=== PATIENT | male | born 1975 | race African-American/Black ===

== ENCOUNTER 2025-05-16 19:15 | Observation (INO) | payer SELFPAY ==
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
--- NOTE | 2025-05-16 19:25 | ECG_ITS ---
Test Date: 2025-05-16 19:30:56 Measurements Intervals [place] Rate: 79 P: 64 NC: 168 QRS: 7 QRSD: 87 T: 34 QT: 345 QTc: 397 Interpretive Statements SINUS RHYTHM WITH SINUS ARRHYTHMIA POSSIBLE ANTERIOR MYOCARDIAL INFARCTION , OF INDETERMINATE AGE Electronically Signed On 05-17-2025 17:16:06 CDT by Mayo Birmingham D.O
[2025-05-16 19:28] VITALS: BP 166/104; PULSE 83; RESP 17; TEMP 36.8; O2SAT 97
[2025-05-16 19:53] LABS: Hematocrit 41.2 % (42.0-52.0); Hemoglobin 13.7 g/dL (14.0-18.0); Immature Granulocyte Percent A 0.0 % (0-0.5); Lymphocytes Absolute Auto 1.84 K/mm3 (0.9-3.2); Mean Corpuscular HGB Conc 33.3 g/dl (32-36); Mean Corpuscular Hemoglobin 31.1 pg (26-34); Mean Corpuscular Volume 93.4 fl (80-100); Nucleated Red Blood Cells Absolute Auto 0.000 K/mm3 (0.0-0.012); Nucleated Red Blood Cells Perc 0.0 % (0.0-0.2); Platelet Count Result 149 k/mm3 (150-375); Red Blood Count 4.41 M/mm3 (4.6-6.20); White Blood Count 4.3 K/mm3 (4.5-10.0)
[2025-05-16 20:03] LABS: INR 0.9; Prothrombin Time 12.5 Seconds (11.1-14.7)
[2025-05-16 20:04] LABS: Partial Thromboplastin Time 26.8 Seconds (22.3-36.8)
[2025-05-16 20:05] LABS: Alanine Aminotransferase 72 U/L (6-50); Albumin Level 4.7 g/dL (3.5-5.1); Alkaline Phosphatase 52 U/L (38-126); Anion Gap 10 mmol/L (4-12); Aspartate Amino Transferase 161 U/L (17-59); Bilirubin,Total 0.6 mg/dL (0.2-1.3); Blood Urea Nitrogen 12 mg/dL (9-20); Calcium 9.1 mg/dL (8.4-10.2); Carbon Dioxide 25 mmol/L (22-30); Chloride 101 mmol/L (98-107); Estimated CRCL calculation 97 ml/min; Estimated Glomerular Filt Rate > 60; Glucose 112 mg/dL (65-110); Lipase 81 U/L (23-300); Potassium 4.0 mmol/L (3.4-5.0); Sodium 136 mmol/L (137-145); Total Protein 8.0 g/dL (6.3-8.2)
[2025-05-16 20:17] LABS: Troponin I < 0.012 ng/mL (0.000-0.034)
--- NOTE | 2025-05-16 22:23 | ECG_ITS ---
Test Date: 2025-05-16 22:31:26 Measurements Intervals [place] Rate: 69 P: 42 NV: 170 QRS: 42 QRSD: 90 T: 36 QT: 378 QTc: 407 Interpretive Statements SINUS RHYTHM VOLTAGE CRITERIA FOR LVH, CONSIDER NORMAL VARIANT Electronically Signed On 05-17-2025 17:18:19 CDT by Mayo Birmingham D.O
[2025-05-16 22:24] VITALS: BP 140/93; PULSE 76; PULSE 82; RESP 12; O2SAT 97
[2025-05-16 22:34] VITALS: O2SAT 97
[2025-05-16] MEDS: ASPIRIN 81 MG CHEWABLE TABLET 324 MG PO (22:44)
[2025-05-16 23:07] LABS: Troponin I 0.035 ng/mL (0.000-0.034)
--- NOTE | 2025-05-16 23:18 | ED.CHESTPAIN ---
HPI - Chest Pain General Chief Complaint: Chest Pain Stated Complaint: cp Time Seen by Provider: 05/16/25 22:26 History of Present Illness HPI narrative: Patient with h/o hypertension, admits that he does drink too much alcohol, presents here with midsternal chest pain on and off for last 2 days, has never had symptoms like this before, he has been trying to cut down on his alcohol use. The pain is nonradiating, no shortness of breath or nausea vomiting or diaphoresis Related Data Allergies Allergy/AdvReac Type Severity Reaction Status Date / Time lisinopril Allergy Intermediate Swelling Verified 05/16/25 19:16 of Lip/Tongue/Throat Review of Systems Review of Systems: All systems reviewed & are unremarkable except as noted in HPI and below Exam Narrative: EXAMINATION OF ORGAN SYSTEMS/BODY AREAS: Constitutional: Vital signs per nursing GENERAL:[No acute distress, non-toxic appearing.] HEAD: Normal with no signs of head trauma. EYES: EOMI, conjunctiva normal ENT: Hearing grossly intact LUNGS: Nonlabored breathing. HEART: [Regular rate and rhythm], normal DP and radial pulses bilaterally ABD: [Soft], [nontender to palpation] EXT: Normal range of motion SKIN: [No rashes or lesions.] NEURO: [Alert and oriented x 3. No gross focal sensory or strength deficits.] PSYCH: Normal affect Course Vital Signs Vital signs: Vital Signs Temperature 98.3 F 05/16/25 19:28 Pulse Rate 83 05/16/25 19:28 Respiratory Rate 17 05/16/25 19:28 Blood Pressure 166/104 H 05/16/25 19:28 Pulse Oximetry 97 05/16/25 19:28 Oxygen Delivery Room Air 05/16/25 19:28 Temperature 98.3 F 05/16/25 19:28 Pulse Rate 76 05/16/25 22:24 Respiratory Rate 12 05/16/25 22:24 Blood Pressure 140/93 H 05/16/25 22:24 Pulse Oximetry 97 05/16/25 22:34 Oxygen Delivery Room Air 05/16/25 22:34 MDM - Chest Pain MDM Narrative Medical decision making narrative: ED COURSE AND MEDICAL DECISION MAKINM presenting with chest pain. EKG done in triage negative for acute ischemic changes. Cardiac workup is initiated. EKG: Performed in triage and interpreted by me. Normal sinus rhythm. Rate 79. Normal axis. AZ normal. QRS duration normal. QTc normal. No pathologic Q waves. No ST segment elevation or depression to suggest acute ischemia. No RV strain pattern. Possible hyperacute T-waves V2 to V4 but no prior EKG for comparison Labs obtained initial troponin normal, LFTs are quite elevated consistent with alcoholic disease. Repeat EKG at 3 hours shows sinus rhythm rate 69, AZ 170, QRS 90, QTC 407, normal axis, the same possible hyperacute T waves visualized without any changes Unfortunately his 2nd troponin came back very minimally elevated at 0.035; at this time given his risk factors I did feel it would be beneficial for him to be admitted for further workup. Patient is agreeable to this plan. He is not having any chest pain so I did not feel heparin drip indicated at this time. He is resting very comfortably without any distress. He has no neurovascular deficits and chest x-ray without widened mediastinum so overall I have low concern for dissection. Discussed with hospitalist for admission. Lab Data 05/16/25 19:47 05/16/25 19:47 Labs: Lab Results 05/16/25 05/16/25 Range/Units 19:47 22:30 WBC 4.3 L (4.5-10.0) K/mm3 RBC 4.41 L (4.6-6.20) M/mm3 Hgb 13.7 L (14.0-18.0) g/dL Hct 41.2 L (42.0-52.0) % MCV 93.4 (80-100) fl MCH 31.1 (26-34) pg MCHC 33.3 (32-36) g/dl RDW 13.4 (11.5-14.5) % Plt Count 149 L (150-375) k/mm3 MPV 10.8 H (7.4-10.4) fl Immature Gran % (Auto) 0.0 (0-0.5) % Neut % (Auto) 42.6 L (45.5-73.1) % Lymph % (Auto) 42.4 (18.3-44.2) % [place] % (Auto) 14.3 H (2.6-8.5) % Eos % (Auto) 0.0 (0-4.4) % Baso % (Auto) 0.7 (0.2-1.2) % Lymph # (Auto) 1.84 (0.9-3.2) K/mm3 [place] # (Auto) 0.6 (0.1-0.6) K/mm3 Eos # (Auto) 0.0 (0-0.3) K/mm3 Baso # (Auto) 0.0 (0.0-0.1) K/mm3 Abs Immat Gran (auto) 0.00 (0.00-0.031) K/mm3 Absolute Neuts (auto) 1.9 (1.3-6.7) K/mm3 Absolute Nucleated RBC 0.000 (0.0-0.012) K/mm3 Nucleated RBC % 0.0 (0.0-0.2) % PT 12.5 (11.1-14.7) Seconds INR 0.9 APTT 26.8 (22.3-36.8) Seconds Sodium 136 L (137-145) mmol/L Potassium 4.0 (3.4-5.0) mmol/L Chloride 101 (98-107) mmol/L Carbon Dioxide 25 (22-30) mmol/L Anion Gap 10 (4-12) mmol/L BUN 12 (9-20) mg/dL Creatinine 0.93 (0.7-1.3) mg/dL Estim Creat Clear Calc 97 ml/min Estimated GFR > 60 (59 - ) Glucose 112 H (65-110) mg/dL Calcium 9.1 (8.4-10.2) mg/dL Total Bilirubin 0.6 (0.2-1.3) mg/dL AST 161 H (17-59) U/L ALT 72 H (6-50) U/L Alkaline Phosphatase 52 (38-126) U/L Troponin I < 0.012 0.035 H* D (0.000-0.034) ng/mL Total Protein 8.0 (6.3-8.2) g/dL Albumin 4.7 (3.5-5.1) g/dL Lipase 81 (23-300) U/L Discharge Plan Discharge Clinical Impression: Atypical chest pain, Elevated LFTs, Elevated troponin Patient Disposition: Still a Patient Condition: Stable
[2025-05-16 23:20] VITALS: BP 145/109; PULSE 81; RESP 18; O2SAT 97
--- OUTSIDE RECORDS SUMMARY | 2025-05-16 23:35 | XMS_ITS | Clinical Summary ---
Author Organization [facility] Address [address] [place] [address] Care Team Providers Care Client Service Administrator Name Role Phone Mike Bernard Primary Care Provider [phone] Allergies Active Allergy Reactions Criticality Noted Date Comments Lisinopril Angioedema High 06/03/2023 Medications amLODIPine (Norvasc) 5 MG tablet Take 5 mg by mouth 1 (one) time each day. 02/23/2025 Active Active Problems No known active problems Encounters Date Type Department Care Team Description 03/08/2025 11:00 AM CDT Office Visit [facility] [place] [address] [place] [address] Francisco Keith MD Chondral defect of left patella (Primary Dx) 03/08/2025 Travel from Last 3 Months Social History Tobacco Use Types Packs/Day Years Used Date Smoking Tobacco: Never Smokeless Tobacco: Never Tobacco Cessation:Counseling Given: Not Answered Alcohol Use Standard Drinks/Week Comments Yes 2 (1 standard drink = 0.6 oz pur e alcohol) Sex and Gender Information Value Date Recorded Sex Assigned at Male 05/09/2025 10:09 AM CDT 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 Gender Identity Male 05/09/2025 10:09 AM CDT Sexual Orientation Not on file Plan of Treatment Health Maintenance Due Date Last Done Comments CT Colonography 1974 Colonoscopy 1974 Colorectal Cancer Screening 1974 FIT-DNA 1974 FOBT 1974 Sigmoidoscopy 1974 MMR Vaccines (1 of 1 - Standard series) 1975 Preventive Visit 1992 Hepatitis B Vaccines (1 of 3 - 19+ 3-dose series) 1993 COVID-19 Vaccine (1 - 2023-2 5 season) 2024 Pneumococcal Vaccine: 50+ Years (1 of 1 - PCV) 2024 Zoster Vaccines (1 of 2) 2024 Influenza Vaccine (#1) 2025 DTaP,Tdap,and Td Vaccines (2 - Td or Tdap) 06/03/2033 06/03/2023, 10/20/2021 HIB Vaccines Aged Out No longer eligi ble based on patient's age to complete this topic HPV Vaccines Aged Out No longer eligi ble based on patient's age to complete this topic Hepatitis A Vaccines Aged Out No long er eligible based on patient's age to complete this topic IPV Vaccines Aged Out No longer eligi ble based on patient's age to complete this topic Meningococcal Vaccine Aged Out No jay mena eligible based on patient's age to complete this topic Rotavirus Vaccines Aged Out No longer eligible based on patient's age to complete this topic Care Teams Client Service Administrator Relationship Specialty Start Date End Date Mike Bernard [address] [facility] [place] [address] PCP - General 03/03/25
--- OUTSIDE RECORDS SUMMARY | 2025-05-16 23:35 | XMS_ITS | Continuity of Care Document ---
Author Organization [facility] Address [address] [place] [address] Phone Care Team Providers Care Emergency Specialist Name Role Phone Kennajayde Alicia HANKINS Unavailable Unavailabl e Allergies, Adverse Reactions, Alerts Substance Reaction Status Criticality lisinopril Active No Information Medications Medication Instructions Dosage Effective Dates (start - stop) Status Comments benzonatate 200 mg capsule take 1 capsul e by oral route 3 times every day as needed for cough 200 MG - Active hydrochlorothiazide 25 mg tablet take 1 tablet by oral route every day 25 MG - Active Procedures Procedure Date OFFICE/OUTPATIENT VISIT, EST Triamcinolone hexacetonl inj DRAIN/INJECT, JOINT/BURSA OFFICE/OUTPATIENT VISIT, EST X-RAY EXAM OF KNEE, 3 VIEWS OFFICE/OUTPATIENT VISIT, EST Tordal Ketorolac Per 15mg THER/PROPH/DIAG INJ, SC/IM OFFICE/OUTPATIENT VISIT, NEW Advance Directives Directive Yes / No Effective Date File Name No Information Encounters Encounter Description Practice Location Reason(s) For Visit Diagnoses Date Provider Providers Copied on Encounter OFFICE/OUTPA TIENT VISIT, EST [facility], [address], [place], [place], [id number], [place] tel:[phone] [facility] High Blood [facility] (chief complaint) [facility] 4 Tyosn Vargas. [address] [place], [place] [address] [place], [place], [id number] , [place]. [phone] Referring Provider: Alicia Mehta, [address] [place] [address], [id number] . tel:[phone] OFFICE/OUTPA TIENT VISIT, [facility], [address] [place] [address], [id number], [place] tel:[phone] [facility] musculoskeleta l pain (chief complaint) Pain in left knee 4 Santosh Abraham. [address] [place], [place] [address], [place], [id number] , [place]. [phone] Referring Provider: Leigh Frost, [address] [place] [address], [id number] . tel:[phone] OFFICE/OUTPA TIENT VISIT, [facility], [address] [place] [address], [id number], [place] tel:[phone] [facility] (chief complaint) Pain in left knee 4 Tyson Vargas. [address] [place], [place] [address], [place], [id number] , [place]. [phone] Referring Provider: Alicia Mehta, [address] [place] [address], [id number] . tel:[phone] OFFICE/OUTPA TIENT VISIT, [facility], [address] [place] [address], [id number], [place] tel:[phone] [facility] injury (chief complaint) Gout 4 Tyson Vargas. [address] [place], [place] [address] [place], [place], [id number] , [place]. tel:[phone] Referring Provider: Alicia Mehta, [address] [place] [address], [id number] . tel:[phone] Family History Family Member Type Diagnosis Age At Onset No Information Payers Payer name Insurance type Covered alliance party ID Tresa hawkins(s) [facility] [id number] CI [id number] Social History Type Description Quantity Date Captured Comments Alcohol Use Details Unknown Caffeine Use Details Unknown Tobacco Use Status No Information Smoking Status No Information Sex Male Vital Signs Date / Time: Height Weight BMI Pulse Rate Blood Pressure Temperature Respiratory Rate Body Surface Area Head Circumference Head Circ. Percentile Wt./[place]. Percentile BMI percentile Pulse Ox Inhaled Ox 8:09 PM 74.00 in 83.007 kg (183.00 lbs) 23.5 0 kg/m eter (2) 75 /min 160/100 mm[Hg] 97.50 F 16 /min 98 % Chief Complaint And Reason For Visit From encounter dated '07/19/2024 18:30'. High Blood Pressure (chief complaint). Description: The symptoms began 26 days ago and generally lasts 26 Days. Pt states that he tested positive covid and since then his blood pressure has spiked and has caused dizziness, headache pain. Reason For Referral Reason For Referral No Information Plan Of Treatment Date Type Action Status Goal Td vaccine. Due on due Goal Influenza vaccine. Due on due Goal Lipid panel. Due on due Goal Hepatitis C screening. Due o n due Goal Tdap. Due on due Goal Unhealthy drug use screening . Due on due Goal Depression screening. Due on due Goal Influenza vaccine. Due on due Goal Depression screening. Due on due Goal Hepatitis C screening. Due o n due Goal Tdap. Due on due Goal Td vaccine. Due on due Goal Unhealthy drug use screening . Due on due Goal Lipid panel. Due on due Goal Influenza vaccine. Due on due Goal Lipid panel. Due on due Goal Depression screening. Due on due Goal Tdap. Due on due Goal Unhealthy drug use screening . Due on due Goal Hepatitis C screening. Due o n due Goal Td vaccine. Due on due Goal Unhealthy drug use screening . Due on due Goal Hepatitis C screening. Due o n due Goal Td vaccine. Due on due Goal Influenza vaccine. Due on due Goal Lipid panel. Due on due Goal Tdap. Due on due Goal Depression screening. Due on due Referral Ordered: MRI JOINT LWR EXTR W/O&W/DYE Left knee ordered History Of Present Illness Encounter Date Complaint History Of Prese nt Illness High Blood Pressure The symptoms began 26 days ago and generally lasts 26 Days. Pt states that he tested positive covid and since then his blood pressure has spiked and has caused dizziness, headache pain. musculoskeletal pain Onset: 5 to 6 days ago. Duration: varies. Severity level is moderate-severe. It occurs constantly and is worsening. Location: left leg. The pain is aching, sharp and throbbing. Context: there is no injury. The pain is aggravated by bending, movement, walking and standing. There are no relieving factors. Pertinent negatives include bruising, crepitus, decreased mobility, difficulty initiating sleep, joint instability, joint tenderness, limping, locking, nocturnal awakening, nocturnal pain, numbness, popping, spasms, swelling, tingling in the arms, tingling in the legs and weakness. musculoskeletal pain Onset: 1 da y ago. Location: left knee. The pain is sharp and throbbing. Context: there is no injury. The pain is aggravated by bending, movement, walking and standing. The pain is relieved by rest. Associated symptoms include decreased mobility, joint instability, joint tenderness, limping, nocturnal awakening, nocturnal pain and swelling. Pertinent negatives include bruising, crepitus, difficulty initiating sleep, locking, numbness, popping, spasms, tingling in the arms, tingling in the legs and weakness. Additional information: Pt presents today for complaints of left knee pain since yesterday morning. He reports that he woke up with the pain and swelling and denies any current or previous injury to this knee. injury The injury occur red 2 days ago. The client has pain in the right foot which is described as aching. The injury is associated with decreased mobility, joint pain, localized swelling, 10/10 pain and tender. The client denies any abdominal pain, change in appetite, chills, diarrhea, fatigue, fever, generalized weakness, headache, lymphadenopathy, malaise, nausea, rash, somnolence, vomiting and weight loss. Functional Status Date Functional Assessmen t No Information Instructions Date Instruction Additional Infor mation HCTZ 25mg dailyIncre ase fluid intakeTylenol PRNMonitor BP readingsEstablish care with PCPRTC PRN Related to Hypertension benzonatate 200mg TI D PRNOTC oral antihistamine & flonase dailyTylenol/ibuprofen as needed. Increase fluid intakeRTC if s/s worsen or do not improve. Related to Cough Consulted with Ortho , Dr. Rome, recommends follow-up and pain control.Verbal consent obtained prior to procedure. Patient confirms injection at this time. Provider preps area with iodine. Provider injects 1mL of lidocaine 1% with epi subdermally to anesthetize the area. Using sterile technique, the provider uses manual palpation to determine the area of injection. Provider uses a 22g 1.5in needle to inject a steroid mixture of 1mL of kenaolog and 2mL of lidocaine 1% plain. Adhesive bandage was applied to the area. Patient tolerated the procedure without complaint. --Rest--Ice/heat PRN--Motrin/Tylenol PRN--Will refer to Dr Rome--RTC PRN Related to Pain in left knee XR knee 3v: No acute findings.Probable enchondromas.Based on insidious onset of pain, swelling and severity of tenderness with palpation, recommend further imaging to rule out possible malignant changes. Recommend MRI with and without contrast of left knee to be done at [facility] PRN Related to Pain in left knee -toradol 60mg IM giv en in clinic-Colchicine 0.6mg: BID x2 weeks or until s/s resolve-Prednisone 50mg daily x5 [id number]-Uan PRN-Warm epsom salt soaks PRN-Tylenol/ibuprofen PRN-Avoid foods high in uric acid-Increase water intake-RTC PRN Related to Gout Assessments Type Assessment Date assessment Hypertension assessment Cough impression [id number] m kayleen presenting to urgent care with reports of elevated blood pressure readings. Reports he tested positive for COVID 7 days ago and since then he has had issues with elevated blood pressure readings. Patient reports his COVID symptoms have mostly improved with the exception of a cough and fatigue. Patient reports he has had a headache, dizziness, lightheadedness and knows this occurs when he has high blood pressure. Patient reports he has been taking Tylenol and ibuprofen with mild symptom relief of the headache. Patient's BP in clinic is 160/100. Patient reports he went to the ED couple days ago and his BP was 175/125. Patient reports he was not started on any medications for his BP. Patient reports he previously was on hydrochlorothiazide 50 mg daily for elevated blood pressure but has not had this medication prescribed for several years Mental Status Date Cognitive Assessment Orientation - [place] ed to time, place, person, situation. Patient Care Teams Name Effective Dates (start - stop) Status Members No Information
--- OUTSIDE RECORDS SUMMARY | 2025-05-16 23:35 | XMS_ITS | Clinical Summary ---
Author Organization [facility] Address [address] [place] [address] [place] [address] Care Team Providers Care Gimp Tacker Name Role Phone Madison Shelton MD Unavail able Jennifer Tran MD Primary Care Provider [phone] Allergies Active Allergy Reactions Criticality Noted Date Comments Lisinopril Angioedema High 06/03/2023 Medications amLODIPine (Norvasc) 5 MG tabletIndication s:Hypertension, unspecified type Take 1 tablet by mouth 1 time each day. 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 Encounters Date Type Department Care Team Description 02/23/2025 11:00 AM CDT Office Visit [address] [address] Jennifer Tran MD Left knee pain, unspecified chronicity (Primary Dx); Bone infarct (HCC); Hypertension, unspecified type from Last 3 Months Immunizations Immunization Administration Dates Next Due TD (adult), 2 Lf tetanus tox oid, preservative free, adsorbed 10/20/2021 Tdap 06/03/2023 Family History Medical History Relation Name Comments Cancer Maternal Grandmother Breast cancer Paternal Grandmother Relation Name Status Comments Maternal Grandmother Paternal Grandmother Social History Tobacco Use Types Packs/Day Years Used Date Smoking Tobacco: Every Day Sex and Gender Information Value Date Recorded Sex Assigned at Male 01/10/2024 12:49 PM CDT Legal Sex Male 12:49 PM CDT Gender Identity Male 01/10/2024 12:49 PM CDT Sexual Orientation Not on file Last Filed Vital Signs Vital Sign Reading Time Taken Comments Blood Pressure 146/100 02/23/2025 10:57 AM CDT Pulse 65 02/23/2025 10:57 AM CDT Temperature 36.8 C (98.3 F) 02/23/2025 10:57 AM CDT Respiratory Rate 19 12/17/2021 11:46 AM CORPORATE BOND TRADER Oxygen Saturation 99% 02/23/2025 10:57 AM CDT Inhaled Oxygen Concentration - - Weight 87.8 kg (193 lb 8 oz) 02/23/2025 10:57 AM CDT Height 188 cm (6' 2) 02/23/2025 10:57 AM CDT Body Mass Index 24.84 02/23/2025 10:57 AM CDT Plan of Treatment Health Maintenance Due Date Last Done Comments CT Colonography 1974 Colonoscopy 1974 Colorectal Cancer Screening 1974 FIT-DNA 1974 FIT 1974 FOBT 1974 Sigmoidoscopy 1974 Hepatitis B Vaccines (1 of 3 - 19+ 3-dose series) 1993 Pneumococcal Vaccine: 50+ Years (1 of 2 - PCV) 1993 Pneumococcal Vaccine: Pediatrics (0 to 5 Years) and At-Risk Patients (6 to 64 Years) (1 of 2 - PCV) 1993 Zoster Vaccines (1 of 2) 2024 Annual Physical 11/20/2024 11/20/2023, 11/20/2023, 01/30/2022 Influenza Vaccine (#1) 2025 Lipid Panel 11/20/2028 11/20/2023, 11/20/2023, 12/17/2021 DTaP/Tdap/Td Vaccines (2 - T d or Tdap) 06/03/2033 06/03/2023, 10/20/2021 Respiratory Syncytial Virus (RSV) Adult Series (1 - 1-dose 75+ series) 2049 HIB Vaccines Aged Out No longer eligi [...] on patient's age to complete this topic Procedures Procedure Name Priority Date/Time Associated Diagnosis Comments LIPID PANEL W/CALCULATED LDL Routine 11/20/2023 9:26 AM CORPORATE BOND TRADER from Last 3 Months or Most Recently Relevant to Health Maintenance Results * (ABNORMAL) Lipid Panel w/calculated LDL (11/20/2023 9:26 AM CORPORATE BOND TRADER) LDL (Calculated) 137(H) mg/dL [facility] RESULT CONVERSION Comment: Reference range: <100 Desirable range <100 mg/dL for primary prevention; <70 mg/dL for patients with CHD or diabetic patients with > or = 2 CHD risk factors. LDL-C is now calculated using the Tracey calculation, which is a validated novel method providing better accuracy than the Friedewald equation in the estimation of LDL-C. Vasquez PINEDA et al. BARBER. 2013;310(19): 3530-4582 (http://education.[employer]/faq/CUK491) Lab test performed by: [facility] [address] [place] [phone] [employer] L Frame HDL 85 > OR = 40 mg/dL [facility] RESULT CONVERSION Comment: Lab test performed by: [facility] [address] [place] [id number] [employer] L Frame Chol/HDL Ratio 2.9 <5.0 (CALC) [facility] RESULT CONVERSION Comment: Lab test performed by: [facility] [address] [place] [phone] [employer] L Frame Triglycerides 132 <150 mg/dL [facility] RESULT CONVERSION Comment: Lab test performed by: [facility] [address] [place] [phone] [employer] L Frame Non HDL Chol 163(H) <130 mg/dL [facility] RESULT CONVERSION Comment: For patients with diabetes plus 1 major ASCVD risk factor, treating to a non-HDL-C goal of <100 mg/dL (LDL-C of <70 mg/dL) is considered a therapeutic option. FASTING:YES FASTING: YES Lab test performed by: [facility] [address] [place] [address] Jose Pedroza Cholesterol 248(H) <200 mg/dL [facility] RESULT CONVERSION Comment: Lab test performed by: [facility] [address] [place] [address] Jose Pedroza Blood 11/20/2023 9:26 AM CORPORATE BOND TRADER us Madison Richard MD LAB BLOO D ORDERABLES Final Result [facility] RESULT CONVERSION from Last 3 Months or Most Recently Relevant to Health Maintenance Care Teams Gimp Tacker Relationship Specialty Start [place] [address] [place] [address] [facility] 02/17/24 [place] [address] [place] [address] PCP - General Family Medicine 02/23/25
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
[2025-05-17] VITALS (13 sets, daily range): BP systolic 122–174; BP diastolic 88–111; PULSE 60–93; RESP 15–18; TEMP 36.7–37.1; O2SAT 95–100; BMI 23.7
[2025-05-17] MEDS: PANTOPRAZOLE SODIUM IV 40 MG VIAL IV PUSH (00:54)
--- NOTE | 2025-05-17 02:00 | ECG_ITS ---
Test Date: 2025-05-17 02:14:00 Measurements Intervals Keno Rate: 59 P: 40 DC: 155 QRS: 50 QRSD: 88 T: 39 QT: 400 QTc: 399 Interpretive Statements SINUS BRADYCARDIA VOLTAGE CRITERIA FOR LVH, CONSIDER NORMAL VARIANT Electronically Signed On 05-17-2025 17:22:38 CDT by Mayo Birmingham D.O
--- NOTE | 2025-05-17 03:07 | ADMGEN ---
This patient, Nikia Carroll, was admitted to Intensive Care Unit-2 at 0240. Patient/family oriented to hospital policies and general routines including ID bracelet, bed and alarms, visiting hours, pain management, procedures, bathroom and other care routines, personal items, smoking policy, room service/diet, and visiting hours. Information on how to activate the Rapid Response Team has been discussed. Patient/Family are encouraged to report perceived risks to care and to ask questions if they do not understand what they are told or what they should do.
[2025-05-17 03:13] LABS: Troponin I 0.013 ng/mL (0.000-0.034)
--- NOTE | 2025-05-17 06:00 | ECHO_ITS ---
Patient Info Name: Nikia Carroll Age: 49 years : 1975 Gender: Male Ht: 74 in Wt: 184 lbs BSA: 2.09 m2 HR: 68 bpm BP: 122 / 88 mmHg Heart Rhythm: Sinus Rhythm Technical Quality: Good Exam Date: 05/17/2025 7:17 AM Patient Status: unknown Admit Date: 05/16/2025 Exam Type: CA echo doppler color flow Complete two-dimensional, color flow and Doppler transthoracic echocardiogram is performed. Staff Referring Physician: Zoey Roblero Veterinary Livestock Inspector: Deborah Scott Attending Provider: Michelle Otto Summary 1. Complete two-dimensional, color flow and Doppler transthoracic echocardiogram is performed. 2. Normal left and right ventricular size and systolic function. 3. No regional wall motion abnormalities. 4. No valvular dysfunction. Left Ventricle Left ventricular chamber dimension is normal. Left ventricular systolic function is normal, estimated at 60-65. The left ventricular diastolic function is normal. Right Ventricle Right ventricular chamber dimension is normal. Left Atria Left atrial chamber dimension is normal. Right Atria Right atrial chamber dimension is normal. Aortic Valve The aortic valve is normal. Pulmonic Valve The pulmonic valve is normal. Mitral Valve The mitral valve has normal leaflets. Tricuspid Valve The tricuspid valve leaflets are normal. Pericardium/Pleural The pericardium appears normal. Aorta The aortic root size at the sinus of Valsalva is normal. Left Ventricular Outflow Tract Name Value Normal LVOT 2D LVOT Diameter 2.0 cm LVOT Doppler LVOT Peak Velocity 113 cm/s LVOT Peak Gradient 5 mmHg LVOT Mean Gradient 2 mmHg LVOT VTI 16 cm LVOT VTI/AV VTI Ratio 0.7 LVOT Stroke Volume 52 ml LVOT CO 3.8 l/min LVOT CI 1.8 l/min/m2 Pulmonic Valve Name Value Normal RVOT Doppler RVOT Peak Velocity 69 cm/s RVOT Peak Gradient 2 mmHg PV Doppler PV Peak Velocity 96 cm/s PV Peak Gradient 4 mmHg Mitral Valve Name Value Normal MV Diastolic Function MV E Peak Velocity 75 cm/s MV A Peak Velocity 80 cm/s MV E/A 0.9 MV Decel Time (PW) 165 ms MV Annular TDI MV E/e' (Septal) 9.1 MV E/e' (Lateral) 7.2 MV E/e' (Average) 8.1 Tricuspid Valve Name Value Normal TV Annular TDI TV Lateral Stacey s' Velocity 16.5 cm/s >=9.5 Aortic Valve Name Value Normal AV Doppler AV Peak Velocity 141 cm/s AV Peak Gradient 8 mmHg AV Mean Gradient 4 mmHg AV VTI 24 cm AV Area (Cont Eq VTI) 2.2 cm2 >=3.0 AV Area (Cont Eq Turner) 2.6 cm2 AV DI (Turner) 0.80 AV Regurgitation 2D LVOT Area 3.3 cm2 Ventricles Name Value Normal LV Dimensions 2D/MM IVS Diastolic Thickness (2D) 0.8 cm 0.6-1.0 LVID Diastole (2D) 5.6 cm 4.2-5.8 LVIW Diastolic Thickness (2D) 0.7 cm 0.6-1.0 LVID Systole (2D) 3.7 cm 2.5-4.0 LVOT Diameter 2.0 cm LV Mass (2D Cubed) 152.98 g 88.00-224.00 LV Mass Index (2D Cubed) 73 g/m2 49-115 Relative Wall Thickness (2D) 0.24 <=0.42 LV Fractional Shortening/Ejection Fraction 2D/MM LV Fractional Shortening (2D) 33 % 25-43 LV EF (2D Teichholz) 62 % LV Diastolic Volume (4C MOD) 98 ml LV EF (4C MOD) 62 % LV Diastolic Volume (2C MOD) 75 ml LV EF (2C MOD) 60 % LV Diastolic Volume (BP MOD) 85 ml 62-150 LV Diastolic Volume Index (BP MOD) 41 ml/m2 34-74 LV Systolic Volume (BP MOD) 34 ml 21-61 LV Systolic Volume Index (BP MOD) 16 ml/m2 11-31 LV EF (BP MOD) 61 % 52-72 LV Diastolic Length (4C) 8.9 cm LV Systolic Length (4C) 6.9 cm LV Stroke Volume (4C MOD) 60 ml Atria Name Value Normal LA Dimensions LA Volume (4C A-L) 53 ml LA Volume (BP A-L) 62 ml RA Dimensions RA Area (4C) 14.1 cm2 <=18.0 Report Signatures
--- NOTE | 2025-05-17 09:16 | PM.CNCAR ---
Assessment and Plan Assessment and plan (1) NSTEMI (non-ST elevated myocardial infarction): Code(s): I21.4 - Non-ST elevation (NSTEMI) myocardial infarction Status: Acute (2) Poorly-controlled hypertension: Code(s): I10 - Essential (primary) hypertension Status: Acute Plan NSTEMI-pressure- chest pain yesterday without recurrence today; 1 mildly elevated troponin of 0.035 (cut of 0.034); most likely demand ischemia secondary to poorly controlled hypertension Hypertension-poorly controlled with SBP in the 160s to 170s secondary to not taking home medication amlodipine for the past 3 weeks Plan: -NSTEMI is most likely demand ischemia secondary to poorly controlled hypertension. Only 1 Troponin is mildly elevated to 0.035 with others being negative. EKG is sinus bradycardia without any significant ST-T changes suggestive of ischemia. Chest pain has resolved. Less likely type 1 ACS given flat troponin. Patient is a middle-aged male with risk factors of hypertension and hence underlying CAD cannot be excluded with certainty. Recommend outpatient exercise stress test in 1 month. Patient will need his blood pressure to be well controlled prior to this. -Restart amlodipine at 10 mg daily -Aspirin 81 mg daily -Atorvastatin 40 mg daily -Check FLP -Advised patient to check his blood pressure daily. Target blood pressure less than 120/80 mm Hg -Check and replace electrolytes to keep potassium greater than 4 and magnesium greater than 2 -TTE to evaluate for LVEF and any regional wall motion abnormalities. If TTE is normal, patient can be discharged home to follow-up with cardiology in 1 month with outpatient stress test as mentioned above -Plan discussed in detail with patient who is agreeable with above plan -Plan discussed with attending Hospitalist History of Present Illness History of Present Illness Consult date/time: 05/17/25 09:16 Reason For Visit: ACS r/o, Trop bump Narrative: 49-year-old male with history of hypertension presents with off and on midsternal chest pain since yesterday. Patient states that he woke up with midsternal chest pressure yesterday which lasted for few minutes and then resolved. He had off and on chest pressure yesterday but none today. He has not had similar pain before. The pain is nonradiating, not associated with any shortness of breath or diaphoresis, no aggravating or relieving factors, no change with deep breaths or change in position. He was noted to have high blood pressure with SBP in the 160s at presentation. He has not been taking his antihypertensive medication amlodipine for the past 3 weeks. He denies any palpitations, dizziness, lightheadedness, presyncope, syncope, leg swelling, recent weight gain, orthopnea, PND. One value of Troponin was very mildly elevated at 0.035 (cutoff 0.034). Cardiology is consulted for further recommendations. Workup: Troponin: 0.012, 0.035, 0.013 EKG: Sinus bradycardia with heart rate 59, LVH Chest x-ray: No acute cardiopulmonary pathology Review of Systems Review of Systems: Complete review of systems was performed and negative other than those mentioned in [facility] Family History Family History (Updated 05/17/25 @ 02:51 by Paty Chambers RN) Other Unknown family medical history Social History Social History Smoking status: Never smoker Alcohol intake: current Drinks per week: 14 Substance use: unknown Lack of Transportation: No Lack of Food: Never True Current Housing: I Have Housing Concerned About Future Housing: No Difficulty Paying Gas/Electric Bills: No Difficulty Paying for Meds: No Currently Unemployed: No Education: High School Diploma/GED Difficulty w/ Childcare or Family Care: No Spiritual care concerns: No Meds Home Medications and Allergies Home Medications ?Medication ?Instructions ?Recorded ?Confirmed ?Type amlodipine 5 mg tablet 5 mg PO DAILY 05/17/25 05/17/25 History Allergies Allergy/AdvReac Type Severity Reaction Status Date / Time lisinopril Allergy Intermediate Swelling Verified 05/16/25 19:16 of Lip/Tongue/Throat Vital Signs Vital Signs - 24 hr 05/16/25 19:28 05/16/25 22:24 05/16/25 22:24 Temperature 36.8 C Pulse Rate 83 82 76 Respiratory Rate 17 12 Blood Pressure 166/104 H 140/93 H Pulse Oximetry 97 97 Oxygen Delivery Room Air 05/16/25 22:34 05/16/25 23:20 05/17/25 02:27 Temperature Pulse Rate 81 65 Respiratory Rate 18 15 Blood Pressure 145/109 H 164/105 H Pulse Oximetry 97 97 98 Oxygen Delivery Room Air 05/17/25 03:19 05/17/25 03:21 05/17/25 04:00 Temperature 36.7 C Pulse Rate 60 74 Respiratory Rate 15 Blood Pressure 166/106 H Pulse Oximetry 97 97 Oxygen Delivery Room Air 05/17/25 05:22 05/17/25 05:23 Temperature Pulse Rate 68 Respiratory Rate Blood Pressure 122/88 Pulse Oximetry Oxygen Delivery Exam Narrative: General: Alert oriented x3, no acute distress Neck: Supple, no JVD Chest: Bilaterally clear to auscultation, no rales or rhonchi Cardiac: S1, S2 +, regular rate, regular rhythm, no murmurs or rubs Extremities: No pedal edema, no skin rash Neurologic: Alert and oriented x3, no focal neurological deficits Results Labs and Meds 05/16/25 19:47 05/16/25 19:47 Lab results: Cardiac Enzymes 05/16/25 05/16/25 05/17/25 Range/Units 19:47 22:30 02:23 AST 161 H (17-59) U/L Troponin I < 0.012 0.035 H* D 0.013 D (0.000-0.034) ng/mL Coagulation 05/16/25 Range/Units 19:47 PT 12.5 (11.1-14.7) Seconds APTT 26.8 (22.3-36.8) Seconds CBC 05/16/25 Range/Units 19:47 WBC 4.3 L (4.5-10.0) K/mm3 RBC 4.41 L (4.6-6.20) M/mm3 Hgb 13.7 L (14.0-18.0) g/dL Hct 41.2 L (42.0-52.0) % Plt Count 149 L (150-375) k/mm3 Lymph # (Auto) 1.84 (0.9-3.2) K/mm3 [place] # (Auto) 0.6 (0.1-0.6) K/mm3 Eos # (Auto) 0.0 (0-0.3) K/mm3 Baso # (Auto) 0.0 (0.0-0.1) K/mm3 Comprehensive Metabolic Panel 05/16/25 Range/Units 19:47 Sodium 136 L (137-145) mmol/L Potassium 4.0 (3.4-5.0) mmol/L Chloride 101 (98-107) mmol/L Carbon Dioxide 25 (22-30) mmol/L BUN 12 (9-20) mg/dL Creatinine 0.93 (0.7-1.3) mg/dL Glucose 112 H (65-110) mg/dL Calcium 9.1 (8.4-10.2) mg/dL AST 161 H (17-59) U/L ALT 72 H (6-50) U/L Alkaline Phosphatase 52 (38-126) U/L Total Protein 8.0 (6.3-8.2) g/dL Albumin 4.7 (3.5-5.1) g/dL Intake and Output 05/16/25 05/17/25 05/17/25 23:59 07:59 15:59 Intake Total 0 Output Total 0 Balance 0 Intake: Oral 0 Output: Urine 0 Patient Weight 05/17/25 23:59 Weight 83.9 kg
--- NOTE | 2025-05-17 10:48 | PM.IMHP ---
H&P: HPI History of Present Illness Date/Time: 05/17/25 10:48 Chief Complaint: Chest pain Narrative: This is a 49-year-old male who presented to the ER with midsternal chest pain off and on since yesterday. He denies any radiation or shortness of breath nausea vomiting or diaphoresis. He has a history of hypertension and was supposed to be on amlodipine. He traveled for work and hence has not been taking for past 3 weeks. With his chest pain a got worried along with the fact that he was not taking his blood pressure medication and hence presented to the ER for evaluation. He drinks every other day and last drink was 2 days ago. In the ED EKG showed no acute ST-T changes. Troponin was negative LFTs were elevated consistent with alcoholic liver disease. Second troponin however came back minimally elevated at 0.035. Is admitted for further treatment. Review of Systems Review of Systems: - CONSTITUTIONAL: Denies weight loss, fever and chills. - HEENT: Denies changes in vision and hearing - RESPIRATORY: Denies SOB and cough. - CV: Denies palpitations and reports CP. - GI: Denies abdominal pain, nausea, vomiting and diarrhea. - : Denies dysuria and urinary frequency. - MSK: Denies myalgia and joint pain. - SKIN: Denies rash and pruritus. - NEUROLOGICAL: Denies headache and syncope. - PSYCHIATRIC: Denies recent changes in mood. Denies anxiety and depression. [facility] Family History Family History (Updated 05/17/25 @ 02:51 by Paty Chambers RN) Other Unknown family medical history Social History Social History Smoking status: Never smoker Alcohol intake: current Drinks per week: 14 Substance use: unknown Lack of Transportation: No Lack of Food: Never True Current Housing: I Have Housing Concerned About Future Housing: No Difficulty Paying Gas/Electric Bills: No Difficulty Paying for Meds: No Currently Unemployed: No Education: High School Diploma/GED Difficulty w/ Childcare or Family Care: No Spiritual care concerns: No Meds Home Medications and Allergies Home Medications ?Medication ?Instructions ?Recorded ?Confirmed ?Type amlodipine 5 mg tablet 5 mg PO DAILY 05/17/25 05/17/25 History Allergies Allergy/AdvReac Type Severity Reaction Status Date / Time lisinopril Allergy Intermediate Swelling Verified 05/16/25 19:16 of Lip/Tongue/Throat Vital Signs Vital Signs - 24 hr 05/16/25 19:28 05/16/25 22:24 05/16/25 22:24 Temperature 98.3 F Pulse Rate 83 82 76 Respiratory Rate 17 12 Blood Pressure 166/104 H 140/93 H Pulse Oximetry 97 97 Oxygen Delivery Room Air 05/16/25 22:34 05/16/25 23:20 05/17/25 02:27 Temperature Pulse Rate 81 65 Respiratory Rate 18 15 Blood Pressure 145/109 H 164/105 H Pulse Oximetry 97 97 98 Oxygen Delivery Room Air 05/17/25 03:19 05/17/25 03:21 05/17/25 04:00 Temperature 98.1 F Pulse Rate 60 74 Respiratory Rate 15 Blood Pressure 166/106 H Pulse Oximetry 97 97 Oxygen Delivery Room Air 05/17/25 05:22 05/17/25 05:23 05/17/25 08:00 Temperature Pulse Rate 68 79 Respiratory Rate Blood Pressure 122/88 Pulse Oximetry Oxygen Delivery Exam Narrative: GENERAL: The patient is well developed, not in acute distress HEENT: Nonicteric sclerae, PERRLA, EOMI. Oropharynx clear. Moist mucous membranes. Conjunctivae appear well perfused. CHEST: Chest wall is nontender. HEART: Regular rate and rhythm without murmur, rubs, or gallops LUNGS: Clear to auscultation bilaterally. no respiratory distress ABDOMEN: Soft, positive bowel sounds, non-tender, no organomegaly. SKIN: No rash, no excessive bruising, petechiae, or purpura. NEUROLOGIC: Cranial nerves II-XII intact, alert and oriented x 3, no gross motor deficits EXTREMITIES: no edema, cyanosis or clubbing H&P: Results Labs Labs: Short CBC 05/16/25 Range/Units 19:47 WBC 4.3 L (4.5-10.0) K/mm3 Hgb 13.7 L (14.0-18.0) g/dL Hct 41.2 L (42.0-52.0) % Plt Count 149 L (150-375) k/mm3 [facility] 05/16/25 19:47 Sodium 136 L Potassium 4.0 Chloride 101 Carbon Dioxide 25 BUN 12 Creatinine 0.93 Glucose 112 H Calcium 9.1 Cardiac Enzymes 05/16/25 05/16/25 05/17/25 Range/Units 19:47 22:30 02:23 Troponin I < 0.012 0.035 H* D 0.013 D (0.000-0.034) ng/mL Liver Function 05/16/25 Range/Units 19:47 Total Bilirubin 0.6 (0.2-1.3) mg/dL AST 161 H (17-59) U/L ALT 72 H (6-50) U/L Alkaline Phosphatase 52 (38-126) U/L Albumin 4.7 (3.5-5.1) g/dL Assessment and Plan Assessment and plan (1) Poorly-controlled hypertension: Code(s): I10 - Essential (primary) hypertension Status: Acute (2) Elevated troponin: Code(s): R79.89 - Other specified abnormal findings of blood chemistry Status: Acute (3) Elevated LFTs: Code(s): R79.89 - Other specified abnormal findings of blood chemistry Status: Acute (4) Atypical chest pain: Code(s): R07.89 - Other chest pain Status: Acute Plan This is a 49-year-old male who presented to the ER with midsternal chest pain off and on since yesterday. He denies any radiation or shortness of breath nausea vomiting or diaphoresis. He has a history of hypertension and was supposed to be on amlodipine. He traveled for work and hence has not been taking for past 3 weeks. With his chest pain a got worried along with the fact that he was not taking his blood pressure medication and hence presented to the ER for evaluation. He drinks every other day and last drink was 2 days ago. In the ED EKG showed no acute ST-T changes. Troponin was negative LFTs were elevated consistent with alcoholic liver disease. Second troponin however came back minimally elevated at 0.035. Is admitted for further treatment. Chest pain serial troponin reviewed. Echo ordered. Discussed with Cardiology. Blood pressure control advised. start aspirin 81 mg daily and Lipitor Hypertension Restart amlodipine Hyperlipidemia DVT prophylaxis Lovenox Code status full code Hospitalist MIPS Advance Care Plan I have confirmed that the patient's Advanced Care Plan is present, code status is documented, or surrogate decision maker is listed in patient medical record.: Yes Medication Reconciliation I have utilized all available resources to obtain, update and review the patients current medications (includes all prescriptions, OTC, herbals, cannabis, and nutritional supplements).: Yes
[2025-05-17 14:01] LABS: Cholesterol 312 mg/dL (0-200); Triglycerides 56 mg/dL (<150)
[2025-05-17 14:26] LABS: HDL Direct 163 mg/dL
[2025-05-17 17:21] LABS: Hemoglobin A1C 5.5 % (<5.7)
--- NOTE | 2025-05-17 20:41 | PM.DS ---
DS: Admitting Diagnosis Discharge Date 05/17/25 Admitting Diagnosis Chest pain DS: Discharge Diagnosis Discharge Diagnosis (1) Poorly-controlled hypertension: Code(s): I10 - Essential (primary) hypertension Status: Acute (2) Elevated troponin: Code(s): R79.89 - Other specified abnormal findings of blood chemistry Status: Acute (3) Elevated LFTs: Code(s): R79.89 - Other specified abnormal findings of blood chemistry Status: Acute (4) Atypical chest pain: Code(s): R07.89 - Other chest pain Status: Acute DS: Summary Hospital Course Hospital Course: This is a 49-year-old male who presented to the ER with midsternal chest pain off and on since yesterday. He denies any radiation or shortness of breath nausea vomiting or diaphoresis. He has a history of hypertension and was supposed to be on amlodipine. He traveled for work and hence has not been taking for past 3 weeks. With his chest pain a got worried along with the fact that he was not taking his blood pressure medication and hence presented to the ER for evaluation. He drinks every other day and last drink was 2 days ago. In the ED EKG showed no acute ST-T changes. Troponin was negative LFTs were elevated consistent with alcoholic liver disease. Second troponin however came back minimally elevated at 0.035. Is admitted for further treatment. Chest pain serial troponin reviewed. Echo ordered and was pending at the time of discharge. This came back normal post discharge. Discussed with Cardiology. Blood pressure control advised. start aspirin 81 mg daily and Lipitor which was ordered. Amlodipine to 10 mg at discharge. Hypertension Restart amlodipine Hyperlipidemia DVT prophylaxis Lovenox Code status full code Time Spent with Patient Time attestation: Total time spent providing and/or coordinating discharge services: 35 minutes Exam Narrative: GENERAL: The patient is well developed, not in acute distress HEENT: Nonicteric sclerae, PERRLA, EOMI. Oropharynx clear. Moist mucous membranes. Conjunctivae appear well perfused. CHEST: Chest wall is nontender. HEART: Regular rate and rhythm without murmur, rubs, or gallops LUNGS: Clear to auscultation bilaterally. no respiratory distress ABDOMEN: Soft, positive bowel sounds, non-tender, no organomegaly. SKIN: No rash, no excessive bruising, petechiae, or purpura. NEUROLOGIC: Cranial nerves II-XII intact, alert and oriented x 3, no gross motor deficits EXTREMITIES: no edema, cyanosis or clubbing DS: Data Data Completed and Pending Completed studies during hospitalization: Exam Type: CA echo doppler color flow Complete two-dimensional, color flow and Doppler transthoracic echocardiogram is performed. Staff Referring Physician: Zoey Roblero Circus Supervisor: Deborah Scott Attending Provider: Michelle Otto Summary 1. Complete two-dimensional, color flow and Doppler transthoracic echocardiogram is performed. 2. Normal left and right ventricular size and systolic function. 3. No regional wall motion abnormalities. 4. No valvular dysfunction. Left Ventricle Left ventricular chamber dimension is normal. Left ventricular systolic function is normal, estimated at 60-65. The left ventricular diastolic function is normal. Right Ventricle Right ventricular chamber dimension is normal. Left Atria Left atrial chamber dimension is normal. Right Atria Right atrial chamber dimension is normal. Aortic Valve The aortic valve is normal. Pulmonic Valve The pulmonic valve is normal. Mitral Valve The mitral valve has normal leaflets. Tricuspid Valve The tricuspid valve leaflets are normal. Pericardium/Pleural The pericardium appears normal. Aorta The aortic root size at the sinus of Valsalva is normal. Labs on day of discharge: Labs from last 24 hours 05/17/25 13:31 Hemoglobin A1c 5.5 Triglycerides 56 Cholesterol 312 H LDL Cholesterol Direct 125 HDL Direct 163 Imaging Radiologist's impression: ITS Impressions Chest X-Ray 05/16/25 20:33 IMPRESSION: 1. No acute cardiopulmonary disease. Discharge Plan Discharge Attending physician on discharge: Ernesto Recio Consulting providers: Jamal Shannon; Lolita Gordon; Mayo Birmingham; Anthony Valdez Discharging Clinician: Ernesto Recio Patient Disposition: Home Activity: as tolerated Diet: as tolerated Patient Instructions: Antibiotic Form, Chronic Hypertension (GEN) Patient Language: [place]izean Stand Alone Forms: General Discharge Information Follow-up/Referrals: Jamal Shannon MD [Physician] - (Follow up within 1 month) Discharge Medications: New aspirin 81 mg Tablet,Delayed Release (Dr/Ec) 81 mg PO DAILY Qty: 30 0RF atorvastatin [Lipitor] 40 mg tablet 40 mg PO HS Qty: 30 0RF Changed amlodipine 5 mg tablet 5 mg PO BID Qty: 60 0RF Date of admission: 05/16/25 23:38 Primary Care Provider: PHYSICIAN NOT ON STAFF,NONSTAFF Admitting Provider: Michelle Otto Attending physician on admission: Ernesto Recio Condition: Stable
== END 2025-05-17 17:05 | disposition home or self-care (01) ==
LOC: ANHED 23:32 → ANHIMU 05-17 00:24 → ANHICU 05-17 16:57 → ANHIMU 05-18 07:21
PROVIDERS: Admitting Provider General Practice; Emergency Provider Emergency Medicine; Visit Provider Internal Medicine
DX: R07.89 Other chest pain (principal); I10 Essential (primary) hypertension; R79.89 Other specified abnormal findings of blood chemistry; E78.5 Hyperlipidemia, unspecified
CPT/HCPCS: 36415; 71046; 80053; 80061; 83036; 83690; 84484; 85025; 85610; 85730; 93005; 93306; 96374; 96375; 99285; A9270; G0378; G0379; J2470